=== PATIENT | male | born 1965 | race Caucasian/White ===

== ENCOUNTER 2022-05-09 09:27 | Outpatient (CLI) | payer MEDICARE, SELFPAY | END 2022-05-09 09:28 | disposition home or self-care (01) | PROVIDERS: PCP Family Medicine; Visit Provider Family Medicine | DX: H90.3 Sensorineural hearing loss, bilateral (principal) | CPT/HCPCS: 92557; 92567 ==

== ENCOUNTER 2022-05-19 09:24 | Outpatient (RCR) | payer MEDICARE, MEDICAID, SELFPAY | END 2022-08-17 23:59 | disposition home or self-care (01) | LOC: ANHBWCAUD 09:24 | PROVIDERS: PCP Family Medicine; Visit Provider Family Medicine | DX: Z46.1 Encounter for fitting and adjustment of hearing aid (principal) | CPT/HCPCS: 99199 ==